=== PATIENT | female | born 2000 | race Caucasian/White ===

== ENCOUNTER 2019-11-12 14:17 | Inpatient (IN) | payer OTHER ==
[~2019-11-12] VITALS: Ht 149.9 cm; Wt 57.2 kg
[2019-11-12] MEDS: LACTATED RINGERS 1,000 ML IV SCH ×2 (14:25→18:20)
[2019-11-12] MEDS ORDERED: NALBUPHINE 10 MG/ML AMP IVP PRN (14:45)
[2019-11-12] MEDS ORDERED: CARBOPROST 250 MCG/ML AMP IM PRN (14:45)
[2019-11-12] MEDS ORDERED: METHYLERGONOVINE 0.2 MG/ML AMP IM PRN (14:45)
[2019-11-12] MEDS ORDERED: OXYTOCIN 20 UNITS in LACTATED RINGERS 1,000 ML IV SCH (14:45)
[2019-11-12 15:00] VITALS: BP 107/62
[2019-11-12 15:24] LABS: BASOPHILS % (AUTO) 0.4 % (0.0-2.0); EOSINOPHILS # (AUTO) 0.1 K/uL (0-0.4); EOSINOPHILS % (AUTO) 1.5 % (0.0-4.0); HEMATOCRIT 36.7 % (36-48); HEMOGLOBIN 12.1 g/dL (12.0-16.0); LYMPHOCYTES # (AUTO) 1.4 K/uL (2.5-16.5); LYMPHOCYTES % (AUTO) 19.3 % (20.5-51.1); MEAN CORPUSCULAR HEMOGLOBIN 28 pg (27-31); MEAN CORPUSCULAR HGB CONC 33 g/dL (33-37); MEAN CORPUSCULAR VOLUME 85.7 fL (80-94); MONOCYTES # (AUTO) 0.6 K/uL (0.8-1.0); MONOCYTES % (AUTO) 8.5 % (1.7-9.3); NEUTROPHILS # (AUTO) 4.9 K/uL (1.8-7.7); NEUTROPHILS % (AUTO) 70.3 % (42.2-75.2); PLATELET COUNT (AUTO) 254 K/uL (140-450); RED BLOOD CELL COUNT(AUTO) 4.28 MIL/uL (4.20-5.40); RED CELL DISTRIBUTION WIDTH 14.1 % (11.6-13.7)
[2019-11-12 15:29] LABS: BILIRUBIN,URINE NEGATIVE (NEGATIVE); BLOOD, URINE NEGATIVE (NEGATIVE); COLOR,URINE YELLOW (YELLOW); LEUKOCYTE ESTERASE ,URINE NEGATIVE (NEGATIVE); NITRITE, URINE NEGATIVE (NEGATIVE); UGLUCOSE NEGATIVE (NEGATIVE)
[2019-11-12 15:36] LABS: APPEARANCE,URINE CLEAR (CLEAR)
[2019-11-12] MEDS ORDERED: OXYTOCIN 20 UNITS/LR PREMIX 1,000 ML IV ONE (15:42)
[2019-11-12] MEDS ORDERED: MISOPROSTOL 25 MCG TAB ONE (16:15)
[2019-11-12] MEDS ORDERED: MISOPROSTOL 200 MCG TAB VG SCH (16:20)
[2019-11-13] MEDS: LACTATED RINGERS 1,000 ML IV SCH ×3 (01:21→07:39)
--- NOTE | 2019-11-13 08:58 | NUR ---
PATIENT HAS BEEN SCREENED AND CATEGORIZED LOW NUTRITION RISK. PATIENT WILL BE SEEN WITHIN 7 DAYS OF ADMISSION. 11/19/[address]
[2019-11-13] MEDS ORDERED: LIDOCAINE 1% 500 MG/50 ML VIAL ONE (09:19)
[2019-11-13] MEDS ORDERED: METHYLERGONOVINE 0.2 MG/ML AMP IM PRN (11:55)
[2019-11-13] MEDS ORDERED: TEMAZEPAM 15 MG CAP PO PRN (11:55)
[2019-11-13] MEDS ORDERED: SODIUM PHOSPHATE 118 ML ENEM RC PRN (11:55)
[2019-11-13] MEDS ORDERED: oxyCODONE/APAP 5/325 MG 1 TAB TAB PO PRN (11:55)
[2019-11-13] MEDS ORDERED: HYDROcodone/APAP 5/325 MG 1 TAB TAB PO PRN (11:55)
[2019-11-13] MEDS ORDERED: BENZOCAINE/MENTHOL 20%-0.5% 60 GM CAN TP PRN (11:55)
[2019-11-13] MEDS ORDERED: DOCUSATE SOD/SENNA 50/8.6 MG 1 TAB PO SCH (21:00)
[2019-11-14] MEDS: IBUPROFEN 800 MG TAB PO PRN ×2 (03:51→20:52)
[2019-11-14 06:08] LABS: HEMATOCRIT 30.4 % (36-48)
[2019-11-15] MEDS ORDERED: FERR325E14 PO (09:52)
[2019-11-15] MEDS ORDERED: IBUP-2213 PO (09:53)
== END 2019-11-15 11:10 | disposition home or self-care (01) | DRG 560 ==
LOC: MFCC 14:17
PROVIDERS: ADMIT Obstetrics & Gynecology; ATTEND Obstetrics & Gynecology
PROC: 10E0XZZ Delivery of Products of Conception, External Approach (ICD-10-PCS; principal; 2019-11-13)
PROC: 10907ZC Drainage of Amniotic Fluid, Therapeutic from Products of Conception, Via Natural or Artificial Opening (ICD-10-PCS; 2019-11-13)
PROC: 3E0P7VZ Introduction of Hormone into Female Reproductive, Via Natural or Artificial Opening (ICD-10-PCS; 2019-11-13)
PROC: 0W8NXZZ Division of Female Perineum, External Approach (ICD-10-PCS; 2019-11-13)
PROC: 3E0234Z Introduction of Serum, Toxoid and Vaccine into Muscle, Percutaneous Approach (ICD-10-PCS; 2019-11-14)
DX: O77.0 Labor and delivery complicated by meconium in amniotic fluid (principal); R71.0 Precipitous drop in hematocrit; Z29.13 Encounter for prophylactic Rho(D) immune globulin; Z3A.40 40 weeks gestation of pregnancy; Z37.0 Single live birth
CPT/HCPCS: 36415; 59200; 59409; 81003; 85018; 85025; 86592; 86850; 86886; 86900; 86901; J2001; J2300; J2590; J2790; J7120